=== PATIENT | female | born 1945 | race Caucasian/White ===

== ENCOUNTER 2017-05-15 14:23 | Emergency (ER) | payer OTHER ==
[~2017-05-15] VITALS: Ht 157.5 cm; Wt 69.4 kg
[2017-05-15 15:14] VITALS: BP_SYST 155
--- NOTE | 2017-05-15 15:20 | NUR ---
Patient triaged and placed in waiting room. VSS and patient appears in no acute distress at this time. Accompanied by family, awaiting available bed, and MD notified of need for MSE.
--- NOTE | 2017-05-15 15:46 | NUR ---
Patient to ER [facility] for evaluation. Side rails up. Will assume Care
--- NOTE | 2017-05-15 15:47 | NUR ---
TALIA Nelson at bedside examining patient.
--- NOTE | 2017-05-15 15:50 | NUR ---
Patient brought in by daughter complaining of productive cough with sputum for 7 days with fever, body aches and frontal headaches. Denies any shortness of breath, chest pain, nausea, vomiting and diarrhea. Lungs have rhonchi bilaterally. Pain of 4/10. No other complaints/injuries per patient or as noted. Will continue to monitor.
[2017-05-15] MEDS ORDERED: IPRATROPIUM/ALBUTEROL SULFATE 3 ML AMPUL.NEB INH ONE (16:00)
[2017-05-15] MEDS ORDERED: DEXAMETHASONE SOD PHOSPHATE 10 MG/ML VIAL IM ONE (16:00)
[2017-05-15 17:05] VITALS: BP_SYST 142
--- NOTE | 2017-05-15 17:10 | NUR ---
Patient given written and verbal discharge instructions and verbalizes understanding. ER MD discussed with patient the results and treatment provided. Patient in stable condition. ID arm band removed. Rx of Levaquin and Promethazine given. Patient educated on pain management and to follow up with PMD. Pain Scale 2/10 tolerable for pt Opportunity for questions provided and answered.
== END 2017-05-15 17:10 | disposition home or self-care (01) ==
LOC: SED 14:23
DX: J20.9 Acute bronchitis, unspecified (principal); R03.0 Elevated blood-pressure reading, without diagnosis of hypertension; F17.210 Nicotine dependence, cigarettes, uncomplicated; Z71.6 Tobacco abuse counseling; Z90.710 Acquired absence of both cervix and uterus
CPT/HCPCS: 36415; 71010; 86710; 94640; 96372; 99285; J1100

== ENCOUNTER 2017-05-28 15:21 | Emergency (ER) | payer OTHER ==
[~2017-05-28] VITALS: Ht 157.5 cm; Wt 68.0 kg
[2017-05-28 15:28] VITALS: BP_SYST 181
--- NOTE | 2017-05-28 15:46 | NUR ---
Pt placed in [place]
--- NOTE | 2017-05-28 15:50 | NUR ---
Pt complains of left ear pain, states "feels like pressure and unable to hear." Pt states when the pressure is in the left ear it hurts in the right ear as well since before [facility]. Pt denies n/v or diarrhea, no cough at this time. No other injuries/complaints per pt or noted.
--- NOTE | 2017-05-28 15:50 | NUR ---
Allison [employer] is at bedside examining patient
--- NOTE | 2017-05-28 16:15 | NUR ---
Ear irrigation is being performed, pt tolerating it well
[2017-05-28 17:03] VITALS: BP_SYST 181
--- NOTE | 2017-05-28 17:03 | NUR ---
Patient given written and verbal discharge instructions and verbalizes understanding. ER MD discussed with patient the results and treatment provided. Patient in stable condition. ID arm band removed. Rx of debrox given. Patient educated on pain management and to follow up with PMD. Pain Scale 1. Opportunity for questions provided and answered.
== END 2017-05-28 17:03 | disposition home or self-care (01) ==
LOC: SED 15:21
DX: H61.22 Impacted cerumen, left ear (principal); R03.0 Elevated blood-pressure reading, without diagnosis of hypertension; Z85.3 Personal history of malignant neoplasm of breast
CPT/HCPCS: 99282